=== PATIENT | male | born 1960 | race Caucasian/White ===

== ENCOUNTER → 2021-05-02 16:22 | Outpatient (BNVA) | payer OTHER, SELFPAY | PROVIDERS: Family Provider Family Medicine; Referring Provider Family Medicine; Visit Provider Family Medicine | DX: K43.2 Incisional hernia without obstruction or gangrene (principal); M25.551 Pain in right hip; J44.1 Chronic obstructive pulmonary disease with (acute) exacerbation | CPT/HCPCS: 73502 ==

== ENCOUNTER → 2021-05-29 13:03 | Outpatient (BNVA) | payer OTHER, SELFPAY | PROVIDERS: Family Provider Family Medicine; Referring Provider Family Medicine; Visit Provider Specialist | DX: M25.551 Pain in right hip (principal) | CPT/HCPCS: 73502 ==

== ENCOUNTER → 2021-09-03 11:38 | Outpatient (BNVA) | payer OTHER, SELFPAY | PROVIDERS: Family Provider Family Medicine; Visit Provider Nurse Practitioner Family | DX: J44.1 Chronic obstructive pulmonary disease with (acute) exacerbation (principal) | CPT/HCPCS: 80053; 85025 ==

== ENCOUNTER → 2021-10-24 11:19 | Outpatient (BNVA) | payer OTHER, SELFPAY | PROVIDERS: Family Provider Family Medicine; PCP Nurse Practitioner Family; Visit Provider Nurse Practitioner Family | DX: I10 Essential (primary) hypertension (principal); G25.81 Restless legs syndrome; J44.1 Chronic obstructive pulmonary disease with (acute) exacerbation; M25.551 Pain in right hip; F41.8 Other specified anxiety disorders | CPT/HCPCS: 80053; 80061; 82607; 83735; 84443; 85025 ==

== ENCOUNTER → 2022-05-30 12:16 | Outpatient (BNVA) | payer OTHER, SELFPAY | PROVIDERS: Family Provider Family Medicine; PCP Nurse Practitioner Family; Visit Provider Nurse Practitioner Family | DX: I10 Essential (primary) hypertension (principal); G25.81 Restless legs syndrome; J44.1 Chronic obstructive pulmonary disease with (acute) exacerbation; M25.551 Pain in right hip; F41.8 Other specified anxiety disorders | CPT/HCPCS: 80053; 80061; 83735; 85025 ==

== ENCOUNTER → 2022-11-28 09:33 | Outpatient (BNVA) | payer OTHER, SELFPAY | PROVIDERS: Family Provider Family Medicine; PCP Nurse Practitioner Family; Visit Provider Student in an Organized Health Care Education/Training Program | DX: M16.11 Unilateral primary osteoarthritis, right hip (principal) | CPT/HCPCS: 73502 ==

== ENCOUNTER → 2022-12-25 17:45 | Outpatient (BNVA) | payer OTHER, SELFPAY | PROVIDERS: Family Provider Family Medicine; PCP Nurse Practitioner Family; Visit Provider Family Medicine | DX: R10.11 Right upper quadrant pain (principal) | CPT/HCPCS: 80053; 85025; 87338 ==

== ENCOUNTER → 2022-12-30 11:41 | Outpatient (BNVA) | payer OTHER, SELFPAY | PROVIDERS: Family Provider Family Medicine; PCP Nurse Practitioner Family; Visit Provider Family Medicine | DX: R10.11 Right upper quadrant pain (principal) | CPT/HCPCS: 87338 ==

== ENCOUNTER 2023-01-20 06:13 | Outpatient (CLI) | payer OTHER, SELFPAY ==
--- NOTE | 2023-01-20 06:45 | US_ITS ---
WS: [id number] Complete ABDOMINAL ULTRASOUND HISTORY: R10.11 - Right upper quadrant pain COMPARISON: None available. Liver: 13.9 cm in length. Normal size liver and echogenicity. No bile duct dilatation or mass. Portal Vein: Normal hepatopetal flow with monophasic waveform. Gallbladder: Normally distended gallbladder with no stones or wall thickening. CBD: 0.3 cm Pancreas: Normal size and echogenicity. Right kidney: 10.5 cm x 5.4 x 5.5 cm. Cortex:1.2 cm. Normal size and echogenicity. No hydronephrosis or mass. Left kidney: 12.1 cm x 3.9 cm x 5.5 cm. Cortex: 1.2 cm. Normal size kidney and normal echogenicity. Cannot exclude a very slight dilatation of the LEFT renal pelvis or extrarenal pelvis. No calyceal dilatation. Spleen: Normal. Aorta and IVC: Unremarkable abdominal aorta and IVC. US/US abdomen complete* [id number] Impression: 1. Unremarkable abdominal ultrasound. 2. No cholelithiasis. 3. Poor visualization of the LEFT renal pelvis. Kidneys are otherwise negative .
== END 2023-01-20 06:14 | disposition home or self-care (01) ==
PROVIDERS: PCP Nurse Practitioner Family; Visit Provider Family Medicine
DX: R10.11 Right upper quadrant pain (principal)
CPT/HCPCS: 76700

== ENCOUNTER → 2023-01-23 11:15 | Outpatient (BNVA) | payer OTHER, SELFPAY | PROVIDERS: PCP Nurse Practitioner Family; Visit Provider Student in an Organized Health Care Education/Training Program | DX: M16.11 Unilateral primary osteoarthritis, right hip (principal) | CPT/HCPCS: 77002 ==

== ENCOUNTER → 2023-05-11 10:00 | Outpatient (BNVA) | payer MEDICARE, OTHER, SELFPAY | PROVIDERS: PCP Nurse Practitioner Family; Visit Provider Family Medicine | DX: Z71.6 Tobacco abuse counseling (principal); I10 Essential (primary) hypertension; J44.9 Chronic obstructive pulmonary disease, unspecified; Z12.5 Encounter for screening for malignant neoplasm of prostate; J44.1 Chronic obstructive pulmonary disease with (acute) exacerbation; F41.8 Other specified anxiety disorders; M25.551 Pain in right hip | CPT/HCPCS: 80053; 80061; 84443; 85025; G0103 ==

== ENCOUNTER → 2023-07-03 07:39 | Outpatient (BNVA) | payer MEDICARE, OTHER, SELFPAY | PROVIDERS: PCP Nurse Practitioner Family; Visit Provider Student in an Organized Health Care Education/Training Program | DX: M16.11 Unilateral primary osteoarthritis, right hip (principal); Z71.6 Tobacco abuse counseling | CPT/HCPCS: 20610; 77002; 99214; J3301 ==

== ENCOUNTER → 2023-10-06 09:52 | Outpatient (BNVA) | payer MEDICARE, OTHER, SELFPAY | PROVIDERS: PCP Nurse Practitioner Family; Visit Provider Student in an Organized Health Care Education/Training Program | DX: M16.11 Unilateral primary osteoarthritis, right hip (principal); Z71.6 Tobacco abuse counseling | CPT/HCPCS: 73522; 99214 ==

== ENCOUNTER 2023-11-02 08:31 | Outpatient (CLI) | payer MEDICARE, OTHER, SELFPAY ==
[2023-11-02 09:04] LABS: Basophils % 0.5 %; Eosinophils # 0.1 10^3/uL (0.0-0.8); Eosinophils % 0.7 %; Hematocrit 44.7 % (37-53); Lymphocytes # 1.1 10^3/uL (0.8-4.8); Lymphocytes % 13.8 %; Mean Corpuscular HGB Conc 32.9 g/dL (30-55); Mean Corpuscular Hemoglobin 31.1 pg (27-33); Mean Corpuscular Volume 94.5 fl (82-101); Mean Platelet Volume 9.5 fL (7.4-10.4); Monocytes % 12.2 %; Neutrophils % 72.6 %; Nucleated Red Blood Cells % 0 %; Platelet Count 285 10^3/cmm (157-399); Red Blood Count 4.73 10^6/uL (3.85-5.65); Red Cell Distribution Width 13.5 % (12.1-15.1); White Blood Count 8.13 10^3/uL (3.29-11.43)
[2023-11-02 09:16] LABS: Add Urine Microscopic? YES; Bilirubin Urine Neg (Negative); Blood Urine Neg (Negative); Glucose Urine UA Norm (Normal); Ketones Urine Negative (Negative); Leukocyte Esterase Urine Trace (Negative); Nitrate Urine Negative (Negative); Protein Urine Neg (Negative); Specific Gravity, Urine 1.005 (1.005-1.030); Sulfosalicylic Acid Urine Negative (Negative); Urine Appearance Clear (CLEAR); Urine Color Yellow (Yellow); Urobilinogen Urine Neg (Negative); pH Urine 8 (5-7)
[2023-11-02 09:17] LABS: RBC Urine RARE /hpf (0-2); WBC Urine RARE /hpf (0-5)
[2023-11-02 09:25] LABS: Alanine Aminotransferase 11 U/L (0-41); Albumin Level 4.1 g/dL (3.5-5.2); Alkaline Phosphatase 89 U/L (40-130); Anion Gap 12.5 (5-19); Aspartate Amino Transferase 15 U/L (0-40); Blood Urea Nitrogen 9 mg/dL (8-23); Calcium 9.2 mg/dL (8.5-10.5); Carbon Dioxide 28 mmol/L (22-29); Chloride 105 mmol/L (98-107); Globulin 2.6 g/dL (1.3-4.6); Glomerular Filtration Rate 113.2 mL/min (90-130); Glucose 104 mg/dL (65-115); Osmolality Calculated 291 mOsm/kg (285-295); Potassium 4.5 mmol/L (3.5-5.1); Sodium 141 mmol/L (136-145); Total Bilirubin 0.3 mg/dL (0.15-1.2); Total Protein 6.7 g/dL (6.6-8.7)
== END 2023-11-02 08:32 | disposition home or self-care (01) ==
LOC: LAB 08:33
PROVIDERS: PCP Family Medicine; Visit Provider Student in an Organized Health Care Education/Training Program
DX: Z01.812 Encounter for preprocedural laboratory examination (principal)
CPT/HCPCS: 36415; 80053; 81001; 85025

== ENCOUNTER → 2023-11-04 09:38 | Outpatient (BNVA) | payer MEDICARE, OTHER, SELFPAY | PROVIDERS: PCP Family Medicine; Visit Provider Family Medicine | DX: Z01.818 Encounter for other preprocedural examination (principal) | CPT/HCPCS: 93005 ==

== ENCOUNTER 2023-11-10 17:05 | Outpatient (CLI) | payer MEDICARE, OTHER, SELFPAY ==
--- NOTE | 2023-11-10 17:30 | CT_ITS ---
WS: [id number] CT RIGHT hip, noncontrast HISTORY: M16.11 - Unilateral primary osteoarthritis, right hip TECHNIQUE: Protocol for GAEL total hip replacement has been obtained. This includes axial imaging thr ough the RIGHT hip, RIGHT knee. DLP: 817.02 mGy COMPARISON: Hip radiograph 10/06/2023 Severe degenerative changes at the RIGHT hip joint. There is asymmetric placement of the femoral head within the acetabulum due to osteophytic ridging. Osteophytic ridging around the acetabulum and femo ral head. Subchondral cystic changes with bone upon bone. Mild degenerative changes noted at the LEFT hip joint. Degenerative facet joint arthritis at L5-S1. There is slight lateral subluxation of the patella. No destructive bone lesions. Mild plaque in the p opliteal arteries. No joint effusions. IMPRESSION: CT imaging provided for [facility] robotic total knee replacement.
== END 2023-11-10 17:06 | disposition home or self-care (01) ==
LOC: RAD 17:05
PROVIDERS: PCP Family Medicine; Visit Provider Student in an Organized Health Care Education/Training Program
DX: M16.11 Unilateral primary osteoarthritis, right hip (principal)
CPT/HCPCS: 73700

== ENCOUNTER 2023-11-16 09:47 | Observation (INO) | payer MEDICARE, OTHER, SELFPAY ==
[2023-11-16] VITALS (22 sets, daily range): BP systolic 90–142; BP diastolic 47–82; PULSE 70–90; RESP 16–22; TEMP 36.1–36.8; O2SAT 78–98; BMI 34.3
[2023-11-16] MEDS: ketorolac 30 mg/mL INJ IVP (06:40)
[2023-11-16] MEDS: acetaminophen 1,000 MG/100 ML PIGGYBACK 400 MG IV ×3 (06:41→17:54)
[2023-11-16] MEDS: sodium chloride 0.9% 1,000 ML 30 ML IV (06:41)
[2023-11-16] MEDS: lactated ringers 500 ML IV (06:42)
--- NOTE | 2023-11-16 06:49 | ANES.PREANE2 ---
Pre-Anesthetic Assessment Height/Weight: Height 1.63 m Weight 90.718 kg Temp Pulse Resp BP Pulse Ox O2 Del Method 98.3 F 81 18 142/82 95 Room Air 11/16/23 06:17 11/16/23 06:17 11/16/23 06:17 11/16/23 06:17 11/16/23 06:17 11/16/23 06:17 Preop Diagnosis: Right hip degenerative joint disease Operation Date: 11/16/23 07:00 Proposed Procedures p Harvey Robot Total Hip Arthroplasty, posterior approach(Right) - Kyle Erik, DO Familial anesthetic complications: None Was Beta Prashant taken within 24 hours: N/A Was Clonidine taken within 24 hours: N/A Last intake: Intake Last Liquid Date 11/15/23 Last Liquid Time 23:55 Last Solid Date 11/15/23 Last Solid Time 16:30 Social Tobacco and No alcohol Exam alert, oriented x 3, clear to auscultation bilaterally and regular rate & rhythm Airway Mallampati: Class III Dentition: other (poor dentition, multiple missing) Pulmonary Chronic Obstructive Pulmonary Disease and Sleep Apnea CV/HEM Hypertension GI Gastroesophageal Reflux Disease Anesthetic Plan ASA status: 3 Anesthesia: Regional (specify below) Other: spinal Risk of > 500 ml blood loss (7ml/kg in children): No Medications/Allergies Home Medications Medication Instructions Recorded Confirmed Last Taken Type nebulizer, mask, tubing and #1 ea 09/03/21 10/12/23 Unknown Rx supplies hydrochlorothiazide 25 mg tablet 25 mg PO QAM #90 tabs 02/09/23 11/16/23 11/15/23 Rx albuterol sulfate 90 mcg/actuation 2 puff inhalation Q6H PRN 05/12/23 11/16/23 11/16/23 Rx aerosol inhaler (ProAir HFA) shortness of breath or wheezing #8.5 grams right economy knee brace #1 ea 07/03/23 10/12/23 Unknown Rx cyclobenzaprine 10 mg tablet See Rx Instructions .Route 07/23/23 11/16/23 11/15/23 Rx .COMPLEX #270 tabs fluticasone 500 mcg-salmeterol 50 1 inh inhalation BID #60 ea 07/23/23 11/16/23 11/16/23 Rx mcg/dose blistr powdr for inhalation (Advair Diskus) gabapentin 600 mg tablet 600 mg PO BID #180 tabs 07/23/23 11/16/23 11/15/23 Rx albuterol sulfate 2.5 mg/3 mL 2.5 mg (3 mL) inhalation QID PRN 08/10/23 11/13/23 11/11/23 Rx (0.083 %) solution for nebulization shortness of breath or wheezing #90 mL hydrocodone 5 mg-acetaminophen 325 1 tab PO Q8H PRN pain 14 days #42 10/12/23 11/16/23 11/16/23 Rx mg tablet tabs acetaminophen 650 mg 650 mg PO Q12H PRN Pain 11/04/23 11/13/23 11/12/23 History tablet,extended release acetylcysteine 600 mg capsule (NAC) 600 mg PO DAILY 11/04/23 11/13/23 11/12/23 History ascorbate calcium (vitamin C) 500 500 mg PO DAILY 11/04/23 11/16/23 11/15/23 History mg tablet cholecalciferol (vit D3) 1,000 1 tab PO DAILY 11/04/23 11/16/23 11/15/23 History unit-vitamin K2 (MK4) 100 mcg tablet (K2 Plus D3) coQ10 (ubiquinol) 100 mg capsule 100 mg PO DAILY 11/04/23 11/16/23 11/15/23 History (Qunol Eleuterio CoQ10) docusate sodium 100 mg capsule 100 mg PO BID 11/04/23 11/16/23 11/15/23 History (Colace) melatonin 3 mg capsule 3 mg PO DAILY 11/04/23 11/16/23 11/14/23 History amlodipine 10 mg tablet 10 mg PO DAILY #90 tabs 11/05/23 11/16/23 11/15/23 Rx omeprazole 40 mg capsule,delayed 40 mg PO BID #180 caps 11/05/23 11/16/23 11/15/23 Rx release citalopram 20 mg tablet 20 mg PO DAILY 11/13/23 11/16/23 11/15/23 History lisinopril 20 mg tablet 20 mg PO BID 11/13/23 11/16/23 11/15/23 History Allergies Allergy/AdvReac Type Severity Reaction Status Date / Time No Known Allergies Allergy Verified 11/13/23 08:22 Current Medications Generic Name Dose Route Start Last Admin Trade Name Slickq PRN Reason Stop Dose Admin Lactated Ringer's 500 mls @ 500 mls/hr 11/16/23 05:53 11/16/23 06:42 Lactated Ringers IV 11/16/23 06:52 500 mls/hr .Q1H ONE Administration Sodium Chloride 1,000 mls @ 30 mls/hr 11/16/23 06:00 11/16/23 06:41 Sodium Chloride 0.9% IV 11/17/23 05:59 30 mls/hr .Q24H JAY Administration PFSH Anesthesia Medical History COPD (chronic obstructive pulmonary disease) Restless leg Depression with anxiety Surgical History Hx of appendectomy (~1988) Social History Smoking and tobacco/nicotine status: current every day tobacco/nicotine user (2 PPD) cigarettes Packs smoked per day: 1 Years cigarettes smoked: 52 Quit status (tobacco/nicotine): not considering quitting Alcohol intake: unknown Substance/Drug Use: never Data Anesthesia Cardiac Studies: No Data to Display
[2023-11-16] MEDS: midazolam 1 mg/mL INJ 2 mL 2 MG IVP (06:51)
[2023-11-16 06:55] LABS: Basophils % 0.5 %; Eosinophils # 0.1 10^3/uL (0.0-0.8); Eosinophils % 1.4 %; Hematocrit 44.8 % (37-53); Lymphocytes # 1.4 10^3/uL (0.8-4.8); Lymphocytes % 18.2 %; Mean Corpuscular HGB Conc 32.8 g/dL (30-55); Mean Corpuscular Hemoglobin 30.9 pg (27-33); Mean Corpuscular Volume 94.3 fl (82-101); Mean Platelet Volume 9.9 fL (7.4-10.4); Monocytes # 1.1 10^3/uL (0.2-0.9); Monocytes % 13.9 %; Neutrophils # 5.17 10^3/uL (1.8-7.7); Neutrophils % 65.7 %; Nucleated Red Blood Cells % 0 %; Platelet Count 303 10^3/cmm (157-399); Red Blood Count 4.75 10^6/uL (3.85-5.65); Red Cell Distribution Width 13.8 % (12.1-15.1); White Blood Count 7.86 10^3/uL (3.29-11.43)
--- NOTE | 2023-11-16 06:55 | W.PM.OPSFHP ---
Same Day Surgery H&P Indication for Procedure/HPI DATE OF PROCEDURE: November 16, 2023 CHIEF COMPLAINT/INDICATIONFOR SURGICAL PROCEDURE: Right hip degenerative joint disease PREOP DIAGNOSIS: Right hip degenerative joint disease PLANNED PROCEDURE: Operation Date: 11/16/23 07:00 Proposed Procedures p Harvey Robot Total Hip Arthroplasty, posterior approach(Right) - Kyle Valencia DO Medications/Allergies* Home Medications Medication Instructions Recorded Confirmed Type acetaminophen 650 mg 650 mg PO Q12H PRN Pain 11/04/23 11/13/23 History tablet,extended release acetylcysteine 600 mg capsule (NAC) 600 mg PO DAILY 11/04/23 11/13/23 History ascorbate calcium (vitamin C) 500 500 mg PO DAILY 11/04/23 11/16/23 History mg tablet cholecalciferol (vit D3) 1,000 1 tab PO DAILY 11/04/23 11/16/23 History unit-vitamin K2 (MK4) 100 mcg tablet (K2 Plus D3) coQ10 (ubiquinol) 100 mg capsule 100 mg PO DAILY 11/04/23 11/16/23 History (Qunol Eleuterio CoQ10) docusate sodium 100 mg capsule 100 mg PO BID 11/04/23 11/16/23 History (Colace) melatonin 3 mg capsule 3 mg PO DAILY 11/04/23 11/16/23 History citalopram 20 mg tablet 20 mg PO DAILY 11/13/23 11/16/23 History lisinopril 20 mg tablet 20 mg PO BID 11/13/23 11/16/23 History Allergies/Adverse Reactions Allergy/AdvReac Type Severity Reaction Status Date / Time No Known Allergies Allergy Verified 11/13/23 08:22 Current Medications: Generic Name Dose Route Start Last Admin Trade Name Freq PRN Reason Stop Dose Admin Sodium Chloride 1,000 mls @ 30 mls/hr 11/16/23 06:00 11/16/23 06:41 Sodium Chloride 0.9% IV 11/17/23 05:59 30 mls/hr .Q24H JAY Administration Midazolam HCl 2 mg 11/16/23 05:53 11/16/23 06:51 Midazolam 1 Mg/Ml Inj 2 Ml IVP 1 mg Q5M PRN Administration Preop Anxiety Pertinent History/Comorbid Conditions* Medical History (Updated 10/12/23 @ 14:44 by Yuki Paris MD) COPD (chronic obstructive pulmonary disease) Restless leg Depression with anxiety Surgical History (Updated 01/18/21 @ 09:55 by Yuki Paris MD) Hx of appendectomy (~1988) Social History Smoking and tobacco/nicotine status: current every day tobacco/nicotine user (2 PPD) cigarettes Packs smoked per day: 1 Years cigarettes smoked: 52 Quit status (tobacco/nicotine): not considering quitting Alcohol intake: unknown Substance/Drug Use: never Pertinent Exam Findings alert, oriented x 3, operative site marked and procedure specific exam findings Patient has right hip tenderness to palpation of the groin as well as pain with range of motion of the hip. Refer to office note on 10/06/2023 for detailed orthopedic examination: Examination of the right hip: -severely diminished rom of hip flex and internal rotation with significant groin pain -Mild tenderness over lateral greater troch -Pedal pulse 2+ -Patient ambulates with limp and using cane. Recommendations Surgery/Procedure today Other Plans: Plan to proceed to the OR today with right total hip arthroplasty Harvey robotic assisted posterior approach. Patient's been over 90 days since his last injection. This point in time he understands the ins and outs procedure the risk benefits complication alternatives with surgery. Understanding risk of surgery he elects to proceed all questions have been answered at this time we will proceed with right total hip arthroplasty?Harvey robotic assisted today. Coding Level of Care Code Acute Code for Pérez Bonilla
[2023-11-16] MEDS: ceFAZolin 2,000 MG in sodium chloride 0.9% (plus) 50 ML 100 MG IV ×3 (07:05→21:47)
[2023-11-16 07:14] LABS: Blood Urea Nitrogen 14 mg/dL (8-23); Calcium 9.4 mg/dL (8.5-10.5); Carbon Dioxide 29 mmol/L (22-29); Chloride 103 mmol/L (98-107); Glucose 111 mg/dL (65-115); Osmolality Calculated 289 mOsm/kg (285-295); Sodium 139 mmol/L (136-145)
[2023-11-16] MEDS: tranexamic acid 1,000 mg/10mL SDV 1000 MG IV (07:45)
[2023-11-16] MEDS: vancomycin 1,000 MG SDV 1000 MG INTRA-ARTI (08:49)
--- NOTE | 2023-11-16 09:22 | W.PM.BPON ---
Date of Procedure: 11/16/2023 Surgeon: Kyle Valencia DO [employer] Supervisor(s): None Procedure(s) performed: Right total hip arthroplasty?Harvey robotic assisted (posterior approach) Findings of the procedure(s): Patient found to have severe right hip degenerative joint disease underwent procedure as planned with this without issues or complications Estimated blood loss: 150 mL Specimen(s) removed: Femoral head and acetabular reamings removed Post-operative diagnosis: Right hip degenerative joint disease
--- NOTE | 2023-11-16 09:23 | PM.OP ---
Operative Report Date of procedure: November 16, 2023 Surgeon: Kyle Valencia DO Procedure: Preop Diagnosis?Right hip degenerative joint disease Post-op diagnosis: Right hip degenerative joint disease Procedure done: Right total hip arthroplasty?robotic assisted Harvey?posterior?approach Implants: [place] total hip arthroplasty implants 54 mm cluster hole acetabular shell 6.5 mm x (20 mm and 30 mm) acetabular screw Alpha code E MDM cementless metal liner Femoral stem size #4 127 degree neck angle Alpha code E MDM -2.7 mm head Surgeon: Kyle Valencia DO Estimated blood loss: 150 mL IV fluids: 1400 mL Urine output: 200 mL Complications: None Condition: stable Disposition: floor Brief History: Patient's been seen and worked up by myself in the outpatient setting and findings consistent with Right hip degenerative joint disease. He has failed conservative treatment this is causing him severe pain and inability to perform his job from a daily aspect. We talked about his treatment options as far as nonoperative and operative intervention. he ultimately through shared decision-making would like to proceed with a Right total hip arthroplasty. we detailed out his risk benefits complications alternatives to surgical and nonsurgical treatment options. Understanding his risk for surgery he elects to proceed with Right total hip arthroplasty robotic assisted Harvey utilizing a?posterior?approach. All questions answered. He elects proceed with surgery today. Procedure: Patient was seen evaluate in preoperative holding area.? Consent was reviewed and signed with patient.? Correct extremity was then marked.? Patient seen evaluate by anesthesia department once cleared for surgery pt was taken back to the operative suite.? Patient underwent spinal anesthesia per the anesthesia department.? This point time pt was then placed on the operative suite and table.? Pt was then placed in lateral decubitus patient worked with the Right hip up.? Patient was secured in the lateral decubitus position with pegboard. All bony prominences well-padded he was properly secured to the bed.? At this point time the Right lower extremity was then prepped and draped in standard orthopedic fashion with care not to drape out the iliac wing for pelvic array placement.? Final timeout performed.? Patient received appropriate preoperative antibiotics. Started off with establishment of my pelvic array pins.? A small longitudinal incision was made directly over the iliac wing.? Sharp scalpel excision through skin and subcutaneous tissue directly onto bone.? Next I then loaded my pelvic pin.? This was then drilled through the iliac wing corridor with excellent fixation.? Next I then loaded the guide which was placed directly onto bone and then subsequently placed 2 more pins to secure fixation.? Next the pelvic array was then sent had excellent visualization with the Harvey robot and was secured. EKG pad was placed on the distal lateral aspect of the femur and sterile aseptic technique and use as my distal reference point. Next I proceeded with my standard?posterior?approach.? Sharp scalpel through skin and subcutaneous tissue this was centered over the greater trochanter.? I then utilized a Fisher elevator over the gluteus amalia fascia.? Next the fascia was then split longitudinally with bipolar electrocautery.? Next a Charnley retractor was then placed.? All bone was then placed into the abductors.? A standard full-thickness release of the piriformis and the short external rotators along with the capsule to grade 1 full thick sleeve for later repair was then placed straight down to the lesser trochanter.? Lesser trochanter was then subsequently identified.? Prior to dislocating the hip we then placed our greater trochanter femur checkpoint.? We marked our appropriate checkpoint for referencing on pelvic array.? At this point in time we then established both of our checkpoints as well as referencing for leg lengths I utilized the EKG pad as my distal reference point. The legs were marked and traced to have appropriate position on the drapes to allow for accurate reading.? Preoperative leg lengths set. Once this was then established I then proceeded with dislocation of the femoral head.? At this point Hohmann's were then placed superiorly and inferiorly along the femoral neck..? The sciatic nerve was protected throughout this case.? At this point time I then utilized the Harvey robot and referencing point to reference different aspects along the femoral head and neck for my appropriate neck length.? These were referenced on the inferior mid substance as well as up into the superior shoulder of the femoral neck.? This marked my oscillating saw was used to make my femoral neck cut.? Femoral head was then removed. Next the leg was placed in appropriate position and my anterior and?posterior?acetabular retractors then placed.? Next I excised the labrum and then remove the pulvinar.? I did do a small release of the inferior capsule which was severely taut to allow for easier placement of my reamers as well as reduction.? Acetabulum was thoroughly irrigated. At this point in time keeping my retractors in place I subsequently loaded up the [employer] robot for my acetabular reaming.?? Next I then set my 54 reamer under the [employer] robot and subsequently held this with appropriate preplanned preop planned version of 40 degrees of abduction angle as well as 20 degrees of anteversion.? This preoperative plan was then subsequently made to accommodate for ranges of motion of impingement that was assessed preoperatively utilizing the [employer] robotic software technology. The small adjustments of abduction and anteversion accommodated no anterior hip impingement with the hip flexed at 90 degrees. I then subsequently reamed this to the appropriate depth with 54mm reamer.? We opened up the acetabular shell clusterhole of the 54 mm Dereck this was then loaded onto my impacting system and then I subsequently impacted this to appropriate depth.? This was then removed from the robot and I used the Harvey probe at the center to confirm on the CT scan that this was down on bone which it was.? Next I then drilled and placed 2 acetabular screws with excellent fixation these were drilled and measured to be 20mm and 30 mm this was in the?posterior?superior aspect of the acetabulum had excellent bite and fixation.? The cup was solid and had excellent press-fit fixation. next, opened the alpha code E MDM cementless liner then subsequently placed in appropriate position and impacted into place.? I then placed a sponge into the acetabulum to protect the polyethylene while my femur preparation was performed.? At this point time I then utilized a small rongeur to clear off the shoulder of the femoral neck to clear out the soft tissue envelope for my box osteotome.? Next box osteotome was used a canal finder was placed as well as a lateral lysing rattail rasp.? Once I was appropriately lateralized I then sequentially broached up to a size 4 femoral stem.? This was impacted to appropriate depth and flushed with my femoral neck cut.? This point I loaded a -2.7 size neck and subsequently reduced the hip.? At this point in time the hip was taken through range of motion before evaluating with the robot on leg lengths.? The hip was taken through range of motion and had excellent stability with hip flexion and internal rotation with no evidence of instability had an appropriate huck.? This point time utilized the Harvey probe from our femur checkpoint down to her distal checkpoint. Satisfied with this trial implants, at this point I dislocated the hip and then called for my final implants with excellent stability in all planes.? Opened up a size 4 femoral Accolade II stem.? My trials were then removed and then subsequently impacted my Accolade II stem to the same level.? This point in time trialed -2.7 mm neck length which helped match with Harvey robotic assistance had appropriate leg lengths comparative to the contralateral hip and this was confirmed clinically as well as had excellent stability I felt as though this was best combination with leg lengths being equal as well as with stability and elected for the final -2.7 mm MDM femoral head. Final MDM femoral head component was then opened and the trunnion was dried and this was impacted with excellent fixation and the hip was subsequently reduced.? We measured our final leg lengths which were appropriate patient had excellent stability in all ranges of motion.? This point time a robotic pins and checkpoints were removed.? I remove the femur checkpoint as well as my pelvic array and iliac wing pins.? Appropriate counts were then made.? This point time thoroughly irrigated the wound bed with pulse lavage.? Vancomycin powder was then sprinkled into the wound bed.? I then performed a standard capsular and external rotator repair utilizing #5 Ethibond and this was tied and repaired through bone tunnels hip, sciatic nerve was protected throughout this portion of the case. Was then kept in abduction external rotation and subsequently closed the fascial layer with Ethibond suture as well as running strata fix suture.? I then closed the deep subcutaneous layer as well as superficial subcutaneous layer with running strata fix suture as well as 3-0strata fix for skin.? Prineo glue dressing was then placed over the skin.? I then irrigated the pelvic array pin site.? There is were then closed with interrupted 0, 2-0 Vicryl suture and Monocryl as well as Prineo glue for the skin.? Incisions were then covered with deep and Silverlon dressing.? Patient was awakened from anesthesia and taken to PACU in stable condition Disposition: Patient taken to PACU in stable condition.? Patient will receive appropriate discharge instructions as well as DVT prophylaxis and pain medication.? Patient will be admitted to the floor for observation should be evaluated by the internal medicine team for medical management.? Patient received appropriate DVT prophylaxis as well as pain medication PT/OT weightbearing as tolerated Right lower extremity with?posterior?hip precautions, Postoperative Abx and TXA.? We will follow-up with patient in the office in 2 weeks.? Patient understands agrees with current plan.? All questions answered.
--- NOTE | 2023-11-16 09:30 | XR_ITS ---
WS: [id number] Exam: XR hip RT 2-3V wo/w pel* [id number] Date/Time of Exam: 11/16/2023 9:47 AM Reason For Exam: post op KENNETH Comparison 10/06/2023. A RIGHT total hip prosthesis has been placed and is in satisfactory position. Postoperative changes i n the adjacent soft tissues. Surgical clips in the RIGHT pelvis. Mild DJD of the LEFT hip. IMPRESSION: 1. RIGHT total hip replacement in satisfactory position.
[2023-11-16] MEDS: HYDROmorphone 1 mg/mL INJ 1 mL 0.5 MG IVP ×2 (09:53→22:01)
--- NOTE | 2023-11-16 09:55 | P.CONIM_ITS ---
Providers/Reason For Consult 2 Consulting Physician/Specialty*: Wilder Crowell MD, hospitalist Reason for Consult*: Medical management Requesting Physician: Dr. Valencia Attending Physician: Kyle Valencia DO Primary Care Provider: Yuki Paris MD History of Present Illness History of Present Illness Nando Mas is a 63 year old male who presented today for an elective total hip arthroplasty on the right secondary to DJD. I have been asked to follow him in consultation, for medical management of his COPD, hypertension, obstructive sleep apnea and other medical conditions. There were no direct complications from surgery. 150 cc of blood loss was noted. I am seeing him in recovery, and he is still under the effects of anesthesia so cannot elaborate on what his medical conditions currently. Review of Systems 2 General: Reports: ROS unobtainable due to medical condition Medications/Allergies Home Medications Medication Instructions Recorded Confirmed Last Taken Type nebulizer, mask, tubing and #1 ea 09/03/21 10/12/23 Unknown Rx supplies hydrochlorothiazide 25 mg tablet 25 mg PO QAM #90 tabs 02/09/23 11/16/23 11/15/23 Rx albuterol sulfate 90 mcg/actuation 2 puff inhalation Q6H PRN 05/12/23 11/16/23 11/16/23 Rx aerosol inhaler (ProAir HFA) shortness of breath or wheezing #8.5 grams right economy knee brace #1 ea 07/03/23 10/12/23 Unknown Rx cyclobenzaprine 10 mg tablet See Rx Instructions .Route 07/23/23 11/16/23 11/15/23 Rx .COMPLEX #270 tabs fluticasone 500 mcg-salmeterol 50 1 inh inhalation BID #60 ea 07/23/23 11/16/23 11/16/23 Rx mcg/dose blistr powdr for inhalation (Advair Diskus) gabapentin 600 mg tablet 600 mg PO BID #180 tabs 07/23/23 11/16/23 11/15/23 Rx albuterol sulfate 2.5 mg/3 mL 2.5 mg (3 mL) inhalation QID PRN 08/10/23 11/13/23 11/11/23 Rx (0.083 %) solution for nebulization shortness of breath or wheezing #90 mL hydrocodone 5 mg-acetaminophen 325 1 tab PO Q8H PRN pain 14 days #42 10/12/23 11/16/23 11/16/23 Rx mg tablet tabs acetaminophen 650 mg 650 mg PO Q12H PRN Pain 11/04/23 11/13/23 11/12/23 History tablet,extended release acetylcysteine 600 mg capsule (NAC) 600 mg PO DAILY 11/04/23 11/13/23 11/12/23 History ascorbate calcium (vitamin C) 500 500 mg PO DAILY 11/04/23 11/16/23 11/15/23 History mg tablet cholecalciferol (vit D3) 1,000 1 tab PO DAILY 11/04/23 11/16/23 11/15/23 History unit-vitamin K2 (MK4) 100 mcg tablet (K2 Plus D3) coQ10 (ubiquinol) 100 mg capsule 100 mg PO DAILY 11/04/23 11/16/23 11/15/23 History (Qunol Eleuterio CoQ10) docusate sodium 100 mg capsule 100 mg PO BID 11/04/23 11/16/23 11/15/23 History (Colace) melatonin 3 mg capsule 3 mg PO DAILY 11/04/23 11/16/23 11/14/23 History amlodipine 10 mg tablet 10 mg PO DAILY #90 tabs 11/05/23 11/16/23 11/15/23 Rx omeprazole 40 mg capsule,delayed 40 mg PO BID #180 caps 11/05/23 11/16/23 11/15/23 Rx release citalopram 20 mg tablet 20 mg PO DAILY 11/13/23 11/16/23 11/15/23 History lisinopril 20 mg tablet 20 mg PO BID 11/13/23 11/16/23 11/15/23 History Allergies Allergy/AdvReac Type Severity Reaction Status Date / Time No Known Allergies Allergy Verified 11/13/23 08:22 Current Medications Generic Name Dose Route Start Last Admin Trade Name Freq PRN Reason Stop Dose Admin Sodium Chloride 1,000 mls @ 30 mls/hr 11/16/23 06:00 11/16/23 06:41 Sodium Chloride 0.9% IV 11/17/23 05:59 30 mls/hr .Q24H JAY Administration Midazolam HCl 2 mg 11/16/23 05:53 11/16/23 06:51 Midazolam 1 Mg/Ml Inj 2 Ml IVP 1 mg Q5M PRN Administration Preop Anxiety PFSH Acute 2 PFSH: Medical History (Updated 11/16/23 @ 10:00 by Wilder Crowell MD) GERD (gastroesophageal reflux disease) Obstructive sleep apnea Hypertension COPD (chronic obstructive pulmonary disease) Restless leg Depression with anxiety Surgical History Hx of appendectomy (~1988) Social History Smoking and tobacco/nicotine status: current every day tobacco/nicotine user (2 PPD) cigarettes Packs smoked per day: 1 Years cigarettes smoked: 52 Quit status (tobacco/nicotine): not considering quitting Alcohol intake: unknown Substance/Drug Use: never Vitals/I&O/Wt Last Vital Signs Temp 98.3 F 11/16/23 06:17 Pulse 81 11/16/23 06:17 Resp 18 11/16/23 06:17 BP 142/82 11/16/23 06:17 Pulse Ox 95 11/16/23 06:17 O2 Del Method Room Air 11/16/23 06:17 O2 Flow Rate 6 11/16/23 09:45 11/15/23 11/16/23 11/16/23 22:59 06:59 14:59 Intake Total 100 / 100 450 / 450 Output Total 350 / 350 Balance 100 / 100 100 / 100 Weight last 48 hrs Weight 90.718 kg Physical Exam 2 Narrative: General exam is a white male, currently recovering from anesthesia. He cannot currently give meaningful responses. He does move, and groans when stimulated. HEENT atraumatic and normocephalic. Neck is supple no lymphadenopathy thyromegaly Cardiovascular regular rate and rhythm, no murmur Lungs clear no wheezing or crackles Abdomen is soft, positive bowel sounds. Masses felt midline, above umbilicus, which has a consistency of a lipoma. No obvious organomegaly exam demonstrates Thomas Extremities no cyanosis, edema, cap refill brisk. Dressing right hip Skin no rash Neuro moves all 4 extremities, no suspected focal deficits. Urinary Catheter Management: Thomas: Cath Placed During This Visit: yes Urinary Catheter Date of Insertion: 11/16/23 Urinary Catheter Time of Insertion: 07:30 Data 11/16/23 06:26 11/16/23 06:26 Other Labs: Recent urinalysis was negative Recent EKG on November 03 which I reviewed demonstrated a normal axis, rate around 80, no acute changes. A&P Assessment and plan (1) Degenerative joint disease of right hip: Patient is directly postoperative total hip arthroplasty on the right. Estimated blood loss 150 cc. No complications with surgery Continue to monitor in recovery When appropriate moved to floor CBC, CMP in the morning to monitor for acute blood loss anemia, and electrolytes following surgery with fluid shifts Therapy consults as per Ortho Qualifiers: Osteoarthritis type: primary Qualified Code(s): M16.11 - Unilateral primary osteoarthritis, right hip (2) Hypertension: Continue home medications, with the exception of hydrochlorothiazide and lisinopril. Will evaluate the patient tomorrow prior to administrating these medications to determine blood pressure can tolerate. Qualifiers: Hypertension type: primary hypertension Qualified Code(s): I10 - Essential (primary) hypertension (3) COPD (chronic obstructive pulmonary disease): Patient with history of COPD. Placed on budesonide, scheduled DuoNeb here. Qualifiers: COPD type: COPD with acute exacerbation Qualified Code(s): J44.1 - Chronic obstructive pulmonary disease with (acute) exacerbation (4) Tobacco dependency: He has a history of tobacco dependency. When he is more alert, nicotine patch can be discussed Encourage abstinence Plan Other medical conditions as listed in history of present illness Thank you for this consultation DVT prophylaxis as per primary Consult Attestations 2 Medical Necessity Statement: As per primary Diagnoses Primary osteoarthritis of right hip M16.11 Osteoarthritis type: primary Primary hypertension I10 Hypertension type: primary hypertension Chronic obstructive pulmonary disease with acute exacerbation J44.1 COPD type: COPD with acute exacerbation Tobacco dependency F17.200 Time Spent (min) 39
--- NOTE | 2023-11-16 10:20 | ANE.PACU2 ---
Inpatient post-anesthesia follow up: Airway intact: Yes Vital signs: Temperature 97.2 F Pulse Rate 84 Respiratory Rate 16 Blood Pressure 112/66 Pulse Oximetry 97 Oxygen Delivery Me thod Nasal Cannula Oxygen Flow Rate 3 Fraction of Inspir ed Oxygen Hydration adequate: Yes Nausea and vomiting: No Pain level: 1 Mental status: Baseline
--- NOTE | 2023-11-16 10:50 | PC.NURSE ---
Patient arrived to med/surg 263 via bed with [employer] Radha.
[2023-11-16] MEDS: chlorhexidine gluconate 0.12% Btl 473 mL 30 ML MUCOUS MEM ×2 (12:05→17:16)
[2023-11-16] MEDS: lactated ringers 1,000 ML 100 ML IV ×2 (12:06→21:47)
[2023-11-16] MEDS: ipratropium-albuterol 3 mL Neb INHALATION ×2 (13:49→20:40)
[2023-11-16] MEDS: tranexamic acid 1,000 MG/100 ML PREMIX 600 MG IV (14:16)
[2023-11-16] MEDS: ketorolac 30 mg/mL INJ 15 MG IVP (16:55)
[2023-11-16] MEDS: pantoprazole DR 40 mg Tablet PO (17:15)
[2023-11-16] MEDS: calcium carb-vit d 600mg/400unit 1 Tablet 1 EACH PO (17:16)
[2023-11-16] MEDS: mupirocin oint 22 gm 1 APPLIC NASAL (17:16)
[2023-11-16] MEDS: gabapentin 300 mg Capsule 600 MG PO (17:16)
[2023-11-16] MEDS: iron polysaccharide complex 150 mg Capsule PO (17:16)
[2023-11-16] MEDS: sennosides-docusate Tablet 2 TAB PO (17:16)
[2023-11-16] MEDS: Fleet Enema 133 mL Enema PR (19:51)
[2023-11-16] MEDS: oxyCODONE 5 mg IR Tab/Cap PO (19:53)
--- NOTE | 2023-11-16 20:14 | PC.NURSE ---
Upon entering room at beginning of shift, patient states I need an enema, give me a damn enema. Patient educated that I would have to call the physician and get an order. Patient states oh, damn no tellings how long that will take. Dr. Tate notified that patient is requesting a saline enema. Patient states he gets enemas over the counter all the time and uses them at home. Patient states he hasn't had a BM in 3 days. Ordered received from Dr. Tate for saline enema. Patient refused to lay left lateral for enema. Patient stated that he is afraid he is going to dislocate his hip. Patient educated that we would help him get positioned properly and use the ABD pillow. Patient states no I just can't do it. Patient stated that he wanted to administer the enema himself. Patient administered half of enema himself and then handed it to this nurse to administer the rest. Educated patient that he needs to hold the enema in, in order for it to work properly. Patient sat on bedside commode and did not hold the enema in. Patient had two small rolando after enema.
[2023-11-16] MEDS: budesonide 0.5 mg/2 mL Neb INHALATION (20:40)
[2023-11-16] MEDS: LORazepam 0.5 mg Tablet PO (21:44)
[2023-11-17] VITALS (12 sets, daily range): BP systolic 129–160; BP diastolic 65–74; PULSE 80–92; RESP 16–20; TEMP 36.5–36.8; O2SAT 90–94
[2023-11-17] MEDS: oxyCODONE 5 mg IR Tab/Cap PO ×3 (00:33→09:58)
[2023-11-17] MEDS: ipratropium-albuterol 3 mL Neb INHALATION ×2 (02:21→09:06)
[2023-11-17] MEDS: HYDROmorphone 1 mg/mL INJ 1 mL 0.5 MG IVP (03:00)
[2023-11-17 05:24] LABS: Basophils % 0.1 %; Hematocrit 35.8 % (37-53); Lymphocytes # 1.3 10^3/uL (0.8-4.8); Lymphocytes % 9.5 %; Mean Corpuscular HGB Conc 33.2 g/dL (30-55); Mean Corpuscular Hemoglobin 31.5 pg (27-33); Mean Corpuscular Volume 94.7 fl (82-101); Mean Platelet Volume 9.7 fL (7.4-10.4); Monocytes # 1.8 10^3/uL (0.2-0.9); Monocytes % 13.2 %; Neutrophils # 10.56 10^3/uL (1.8-7.7); Neutrophils % 76.8 %; Nucleated Red Blood Cells % 0 %; Platelet Count 264 10^3/cmm (157-399); Red Blood Count 3.78 10^6/uL (3.85-5.65); White Blood Count 13.75 10^3/uL (3.29-11.43)
[2023-11-17 05:50] LABS: Anion Gap 11.9 (5-19); Blood Urea Nitrogen 15 mg/dL (8-23); Carbon Dioxide 27 mmol/L (22-29); Chloride 104 mmol/L (98-107); Creatinine Clr Calc Pharmacy 92.0818; Glomerular Filtration Rate 113.2 mL/min (90-130); Glucose 113 mg/dL (65-115); Osmolality Calculated 288 mOsm/kg (285-295); Potassium 4.9 mmol/L (3.5-5.1); Sodium 138 mmol/L (136-145)
[2023-11-17] MEDS: ceFAZolin 2,000 MG in sodium chloride 0.9% (plus) 50 ML 100 MG IV (06:23)
--- NOTE | 2023-11-17 06:33 | PC.NURSE ---
Patient only voided 250 ml in urinal since odell removal at 8 pm, however patient spilled urinal once on floor and unable to measure this urine. Bladder scan showed 223 ml.
--- NOTE | 2023-11-17 08:17 | PC.PHAR ---
MEDICATIONS CONFIRMED BY RN-VERIFIED DRUG, STRENGTH, AND DOSAGE 11/17/23.
--- NOTE | 2023-11-17 08:25 | P.PN_ITS ---
Subjective 2 Subjective: Nando reports he is doing okay. He did not sleep well last night. He is hopeful he can go home today. He reports his lower extremities are little swollen. Medications: Reviewed: Yes Vitals/I&O/Wt Last Vital Signs Temp 98.3 F 11/17/23 04:53 Pulse 87 11/17/23 06:00 Resp 20 H 11/17/23 04:53 BP 129/70 11/17/23 04:53 Pulse Ox 91 11/17/23 04:53 O2 Del Method Room Air 11/17/23 04:53 O2 Flow Rate 3 11/16/23 13:52 11/16/23 11/17/23 11/17/23 22:59 06:59 14:59 Intake Total 2078.333 / 3848.833 50 / 3898.833 1000 / 1000 Output Total 600 / 950 250 / 1200 Balance 1478.333 / 2898.833 -200 / 2698.833 1000 / 1000 Weight last 48 hrs Weight 87.997 kg Weight 90.718 kg Weight 90.718 kg Physical Exam 2 Narrative: General exam is a white male, no distress Neck is supple no lymphadenopathy thyromegaly Cardiovascular regular rate and rhythm, no murmur Lungs clear no wheezing or crackles Abdomen is soft, positive bowel sounds. Extremities no cyanosis, edema, cap refill brisk. Dressing right hip clean and intact Urinary Catheter Management: Thomas: Cath Placed During This Visit: yes, but has since been removed by the nurse Reason for Continuing Indwelling Catheter: Decision to DC Catheter Urinary Catheter Date of Insertion: 11/16/23 Urinary Catheter Time of Insertion: 07:30 Date Urinary Catheter Removed: 11/16/23 Time Urinary Catheter Discontinued: 20:00 Data 11/17/23 05:00 11/17/23 05:00 A&P Assessment and plan (1) Degenerative joint disease of right hip: Postoperative day #1 status post right total hip arthroplasty. Estimated blood loss 150 cc. No complications with surgery Appears to be doing well. Potential discharge today. Therapy consults as per Ortho Qualifiers: Osteoarthritis type: primary Qualified Code(s): M16.11 - Unilateral primary osteoarthritis, right hip (2) Hypertension: Doing okay. Restart hydrochlorothiazide today along with Norvasc. He can start his SAULO inhibitor tomorrow. Qualifiers: Hypertension type: primary hypertension Qualified Code(s): I10 - Essential (primary) hypertension (3) COPD (chronic obstructive pulmonary disease): Patient with history of COPD. Placed on budesonide, scheduled DuoNeb here. Qualifiers: COPD type: COPD with acute exacerbation Qualified Code(s): J44.1 - Chronic obstructive pulmonary disease with (acute) exacerbation (4) Tobacco dependency: He has a history of tobacco dependency. When he is more alert, nicotine patch can be discussed Encourage abstinence Plan Other medical conditions as listed in history of present illness Thank you for this consultation DVT prophylaxis as per primary Discontinue IV fluid. He is taking p.o. well Attestations 2 Medical Necessity Statement*: As per primary Diagnoses Primary osteoarthritis of right hip M16.11 Osteoarthritis type: primary Primary hypertension I10 Hypertension type: primary hypertension Chronic obstructive pulmonary disease with acute exacerbation J44.1 COPD type: COPD with acute exacerbation Tobacco dependency F17.200 Time Spent (min) 21
[2023-11-17] MEDS: budesonide 0.5 mg/2 mL Neb INHALATION (09:06)
--- NOTE | 2023-11-17 09:36 | PC.CHAP ---
Pastoral Care Encounter/Spiritual Assessment Type of Contact [] Declined signal operator linguist visit [] Patient/Family/Request visit [] Outpatient visit [] Follow-up visit [] Physician referral [] Code/Alert [x] Routine visit [] Staff referral [] Actively dying [] Patient sleeping [] Family support [] [] Out of room [] Palliative care [] [] Receiving care in room [] Pre-surgical visit [] Trauma [] Long length of stay [] ICU visit [] Other: Relational/Emotional Strength [x] Patient feels connected with others/family/visitors/staff [] Distress [] Loneliness/isolation [] Abandonment Spirituality of Patient [x] Person of Pina [] Attends Mandaen of their Pina [x] Believes in Prayer [] Reads Bible or Judaism materials [] There are Spiritual issues to be addressed Plant Specialist Interventions [x] Prayer [] Active listening [] Non-anxious presence [x] Spiritual/emotional support [] Crisis/trauma care [] Spiritual counseling [] Bereavement support [] Provided bereavement packet [] Provided Bible/devotional materials [] Provided toy/stuffed animal, coloring book to patient or family member [] Provided Communion [] Anointing/Puryear [] Salvation [x] Completed spiritual assessment [] Other: Impact on Illness or Injury [] Angry [] Fearful [] Anxious [] Often cries [] Exhaustion [] Unable to work [] Unable to attend gnosticism [] Unable to walk/stand [] Unable to read [] Unable to drive [] Unable to eat/drink [] Unable to sleep [] Unable to be with family [] Patient intubated [] Other: Summary Time spent with patient 5 min
[2023-11-17] MEDS: sennosides-docusate Tablet 2 TAB PO (09:58)
[2023-11-17] MEDS: gabapentin 300 mg Capsule 600 MG PO (09:58)
[2023-11-17] MEDS: apixaban 5 mg Tablet 2.5 MG PO (09:58)
[2023-11-17] MEDS: iron polysaccharide complex 150 mg Capsule PO (09:58)
[2023-11-17] MEDS: multivitamin therapeutic Tablet 1 TAB PO (09:58)
[2023-11-17] MEDS: citalopram 20 mg Tablet PO (09:58)
[2023-11-17] MEDS: hydroCHLOROthiazide 25 mg Tablet PO (09:58)
[2023-11-17] MEDS: amlodipine 10 mg Tablet PO (09:58)
[2023-11-17] MEDS: pantoprazole DR 40 mg Tablet PO (09:58)
[2023-11-17] MEDS: calcium carb-vit d 600mg/400unit 1 Tablet 1 EACH PO (09:58)
[2023-11-17] MEDS: chlorhexidine gluconate 0.12% Btl 473 mL 30 ML MUCOUS MEM (09:59)
[2023-11-17] MEDS: mupirocin oint 22 gm 1 APPLIC NASAL (09:59)
[2023-11-17] MEDS: ketorolac 30 mg/mL INJ 15 MG IVP (11:24)
--- NOTE | 2023-11-17 12:34 | PM.DCS ---
Discharge Providers Date of Admission: 11/16/23 09:47 Date of Discharge: November 17, 2023 Attending Provider at Admission: Kyle Valencia DO Attending Provider at Discharge: Kyle Valencia DO Consults: Dr. Crowell?hospitalist Primary Care Provider: Yuki Paris MD Diagnoses at Discharge Discharge Diagnosis (1) Degenerative joint disease of right hip: Status: Resolved Qualifiers: Osteoarthritis type: primary Qualified Code(s): M16.11 - Unilateral primary osteoarthritis, right hip (2) Hypertension: Status: Acute Qualifiers: Hypertension type: primary hypertension Qualified Code(s): I10 - Essential (primary) hypertension (3) COPD (chronic obstructive pulmonary disease): Status: Acute Qualifiers: COPD type: COPD with acute exacerbation Qualified Code(s): J44.1 - Chronic obstructive pulmonary disease with (acute) exacerbation (4) Tobacco dependency: Status: Acute Reason for Visit Reason for Visit: M16.11 Brief History: Status post right total hip arthroplasty Hospital Course Hospital Course Patient was brought to the hospital through the preoperative holding area with plan for right total hip arthroplasty for [right] hip dengerative joint disease. Once cleared by anesthesia for surgery subsequently was taken back to the operative suite underwent anesthesia per the anesthesia department and then underwent [right] total hip arthroplasty with Harvey robotic assistance posterior approach without any complications. Patient was then subsequently taken back to PACU in stable condition recovering well. Once recovered, patient was then subsequently admitted to the floor postoperatively. Internal medicine was consulted for medical management assistance. Patient weightbearing as tolerated to the right lower extremity, posterior hip precautions. PT/OT. Pain control. DVT prophylaxis. Postoperative antibiotics and TXA. dressing was change as needed. Internal medicine was on board and appreciate their medical management and assistance. Pt was determined on postoperative day [1] the patient was stable for discharge from orthopedic as well as internal medicine standpoint. Patient's labs were monitored daily. Patient will receive appropriate pain medication as well as DVT prophylaxis postoperatively. Appropriate discharge instructions as well. Patient was then discharged in stable condition. Patient will discharge home. Pt will follow-up with Orthopedics in the office in 2 weeks. Patient understands and agrees with current plan. All questions answered. Understands there is any issues or concerns and contact the office. Physical Exam Narrative: Examination of the right hip vanna dressing on the place with good seal no signs of saturation normal postoperative swelling to the right hip noted. Compartments soft compressible. Patient is able to wiggle the toes, plantarflex and dorsiflex ankle sensations intact to light touch distally distal pulses are palpable. Calf soft nontender Urinary Catheter Management: Thomas: Cath Placed During This Visit: yes, but has since been removed by the nurse Reason for Continuing Indwelling Catheter: Decision to DC Catheter Urinary Catheter Date of Insertion: 11/16/23 Urinary Catheter Time of Insertion: 07:30 Date Urinary Catheter Removed: 11/16/23 Time Urinary Catheter Discontinued: 20:00 Discharge Data Studies Completed and Pending Completed Studies During Hospitalization Category Date Time Status XR hip RT 2-3V wo/w pel* [id number] Routine Exams 11/16/23 09:30 Completed Pending at discharge Category Date Time Status Basic Metabolic Panel AM LABS Lab 11/18/23 04:00 Ordered Basic Metabolic Panel AM LABS Lab 11/19/23 04:00 Ordered Complete Blood Count w/Auto AM LABS Lab 11/18/23 04:00 Ordered Complete Blood Count w/Auto AM LABS Lab 11/19/23 04:00 Ordered Laboratory Results WBC 13.75 10^3/uL (3.29-11.43) H 11/17/23 05:00 RBC 3.78 10^6/uL (3.85-5.65) L 11/17/23 05:00 Hgb 11.90 g/dL (11.27-16.99) 11/17/23 05:00 Hct 35.8 % (37-53) L 11/17/23 05:00 MCV 94.7 fl (82-101) 11/17/23 05:00 MCH 31.5 pg (27-33) 11/17/23 05:00 MCHC 33.2 g/dL (30-55) 11/17/23 05:00 RDW 14.0 % (12.1-15.1) 11/17/23 05:00 Plt Count 264 10^3/cmm (157-399) 11/17/23 05:00 MPV 9.7 fL (7.4-10.4) 11/17/23 05:00 Neut % (Auto) 76.8 % 11/17/23 05:00 Lymph % (Auto) 9.5 % 11/17/23 05:00 [place] % (Auto) 13.2 % 11/17/23 05:00 Eos % (Auto) 0.0 % 11/17/23 05:00 Baso % (Auto) 0.1 % 11/17/23 05:00 Neut # (Auto) 10.56 10^3/uL (1.8-7.7) H 11/17/23 05:00 Lymph # (Auto) 1.3 10^3/uL (0.8-4.8) 11/17/23 05:00 [place] # (Auto) 1.8 10^3/uL (0.2-0.9) H 11/17/23 05:00 Eos # (Auto) 0.0 10^3/uL (0.0-0.8) 11/17/23 05:00 Baso # (Auto) 0.0 10^3/uL (0.0-0.1) 11/17/23 05:00 Nucleated RBC % (auto) 0 % 11/17/23 05:00 Nucleated RBCs # 0.0 /100WBC 11/17/23 05:00 Sodium 138 mmol/L (136-145) 11/17/23 05:00 Potassium 4.9 mmol/L (3.5-5.1) 11/17/23 05:00 Chloride 104 mmol/L (98-107) 11/17/23 05:00 Carbon Dioxide 27 mmol/L (22-29) 11/17/23 05:00 Anion Gap 11.9 (5-19) 11/17/23 05:00 BUN 15 mg/dL (8-23) 11/17/23 05:00 Creatinine 0.7 mg/dL (0.7-1.2) 11/17/23 05:00 GFR Calculation 113.2 mL/min (90-130) 11/17/23 05:00 Glucose 113 mg/dL (65-115) 11/17/23 05:00 Calculated Osmolality 288 mOsm/kg (285-295) 11/17/23 05:00 Calcium 9.0 mg/dL (8.5-10.5) 11/17/23 05:00 Blood Type O Positive 11/16/23 06:26 Rho(D) Type Rh positive 11/16/23 06:26 Antibody Screen Negative 11/16/23 06:26 Vitals Last Vital Signs Temp 97.7 F 11/17/23 12:14 Pulse 92 11/17/23 12:14 Resp 19 H 11/17/23 12:14 BP 152/74 11/17/23 12:14 Pulse Ox 90 11/17/23 12:14 O2 Del Method Room Air 11/17/23 12:14 O2 Flow Rate 3 11/16/23 13:52 Discharge Plan Discharge Patient Disposition: Home Health Service Condition: Stable Prescriptions: New Eliquis 2.5 mg tablet 2.5 mg PO BID 35 Days Qty: 70 0RF Calcium 600 + D(3) 600 mg-10 mcg (400 unit) tablet 1 tab PO DAILY 30 Days Qty: 30 0RF Continued (DME) nebulizer, mask, tubing and supplies See Rx Instructions .Route .MEDSUPPLY Qty: 1 0RF Rx Instructions: As directed albuterol sulfate 2.5 mg /3 mL (0.083 %) solution for nebulization 2.5 mg inhalation QID PRN (Reason: shortness of breath or wheezing) Qty: 90 3RF (DME) right economy knee brace See Rx Instructions .Route .MEDSUPPLY Qty: 1 0RF Rx Instructions: As directed hydrochlorothiazide 25 mg tablet 25 mg PO QAM Qty: 90 3RF albuterol sulfate [ProAir HFA] 90 mcg/actuation HFA aerosol inhaler 2 puff inhalation Q6H PRN (Reason: shortness of breath or wheezing) Qty: 8.5 5RF gabapentin 600 mg tablet 600 mg PO BID Qty: 180 1RF fluticasone propion-salmeterol [Advair Diskus] 500-50 mcg/dose blister with device 1 inh inhalation BID Qty: 60 5RF cyclobenzaprine 10 mg tablet See Rx Instructions .ROUTE .COMPLEX Qty: 270 1RF Dose Instruction: TAKE 1/2 TO 1 TABLET BY MOUTH THREE TIMES DAILY NEEDED FOR MUSCLE SPASMS Rx Instructions: TAKE 1/2 TO 1 TABLET BY MOUTH THREE TIMES DAILY NEEDED FOR MUSCLE SPASMS acetaminophen 650 mg tablet extended release 650 mg PO Q12H PRN (Reason: Pain) ascorbate calcium (vitamin C) 500 mg tablet 500 mg PO DAILY docusate sodium [Colace] 100 mg capsule 100 mg PO BID acetylcysteine [NAC] 600 mg capsule 600 mg PO DAILY coQ10 (ubiquinol) [Qunol Eleuterio CoQ10] 100 mg capsule 100 mg PO DAILY K2 Plus D3 1,000-100 unit-mcg tablet 1 tab PO DAILY melatonin 3 mg capsule 3 mg PO DAILY hydrocodone-acetaminophen 5-325 mg tablet 1 tab PO Q8H PRN (Reason: pain) 14 Days Qty: 42 0RF amlodipine 10 mg tablet 10 mg PO DAILY Qty: 90 1RF omeprazole 40 mg capsule,delayed release(DR/EC) 40 mg PO BID Qty: 180 3RF lisinopril 20 mg tablet 20 mg PO BID Rx Instructions: TAKE ONE TABLET BY MOUTH TWICE DAILY citalopram 20 mg tablet 20 mg PO DAILY Rx Instructions: TAKE ONE TABLET BY MOUTH EVERY DAY Discharge Orders: Discharge Order (Routine); Ordered 11/17/23 Ordered By: Kyle Valencia Referrals: [facility] [Outside] Kyle Valencia DO [Physician] - 12/03/23 9:15 am Discharge Diet: Advance as tolerated Discharge Activity: Limit activity as instructed, Use walker/crutches as instructed and As per PT/OT instructions Patient Instructions: Cephalexin (By mouth), Oxycodone, Rapid Release (By mouth), Ondansetron (By mouth), Apixaban (By mouth), Total Hip Replacement (GEN), Joint Replacement Stoplight, Opioid Safety Activity Restrictions/Additional Instructions: Orthopedic discharge instructions: All of your dressings are waterproof. Larger dressing--Vanna Dressing--Keep dressing on and dry. After 3 days you can shower, just disconnect battery pack when showering. Vanna dressing will stay on until follow up appt in 2 weeks. The battery pack for the dressing will at 5-7 days. Battery pack can be removed and discarded once batteries . Smaller Dressing-- leave Silverlon bandage dressings on in place for 7 days after that may rinse incisions with warm soapy water pat dry. Okay to shower over dressings if they do become wet these should be removed and new dressings applied Weight-bear as tolerated to operative lower extremity Posterior hip precautions as instructed by physical therapy(no crossing legs, avoid flexion greater than 90 degrees and avoid internal rotation of the hip) Ice as needed for pain and swelling Take pain medication as prescribed Take antinausea medication as needed Supplement with Citracal vitamin D for bone health and healing Take Colace as needed for constipation Take blood thinner as prescribed (Eliquis) Follow-up in the orthopedic office in 2 weeks Contact the office for any questions or concerns Discharge Attestations Time Spent in Discharge Care*: less than 30 min Quality Metrics Clinical Quality Measures [ No reported AMI, CVA or VTE this stay] Coding Level of Care Code Acute Code for Chg Fwd Diagnoses Primary osteoarthritis of right hip M16.11 Osteoarthritis type: primary Primary hypertension I10 Hypertension type: primary hypertension Chronic obstructive pulmonary disease with acute exacerbation J44.1 COPD type: COPD with acute exacerbation Tobacco dependency F17.200 Time Spent (min) 25
--- NOTE | 2023-11-17 14:38 | PC.NURSE ---
Discharge delay due to waiting on meds to beds.
== END 2023-11-17 15:32 | disposition home health service (06) ==
LOC: MEDSURG 09:48
PROVIDERS: Admitting Provider Student in an Organized Health Care Education/Training Program; PCP Family Medicine; Visit Provider Student in an Organized Health Care Education/Training Program
PROC: 8E0Y0CZ Robotic Assisted Procedure of Lower Extremity, Open Approach (ICD-10-PCS; CPT 27130; principal; 2023-11-16 07:00)
DX: M16.11 Unilateral primary osteoarthritis, right hip (principal); I10 Essential (primary) hypertension; J44.1 Chronic obstructive pulmonary disease with (acute) exacerbation; G47.33 Obstructive sleep apnea (adult) (pediatric); F17.210 Nicotine dependence, cigarettes, uncomplicated
CPT/HCPCS: 20985; 27130; 36415; 51702; 51798; 73502; 80048; 85025; 86850; 86900; 94640; 97110; 97116; 97161; 97165; 97530; C1713; C1776; G0378; J0131; J0330; J0690; J1100; J1170; J1885; J2250; J2371; J2405; J2704; J2710; J3010; J3370; J3490; J7030; J7120; J7626

== ENCOUNTER → 2023-12-03 08:58 | Outpatient (BNVA) | payer MEDICARE, OTHER, SELFPAY | PROVIDERS: PCP Family Medicine; Visit Provider Student in an Organized Health Care Education/Training Program | DX: Z96.641 Presence of right artificial hip joint (principal); M79.89 Other specified soft tissue disorders; Z48.89 Encounter for other specified surgical aftercare; Z79.899 Other long term (current) drug therapy | CPT/HCPCS: 73502 ==

== ENCOUNTER 2023-12-03 10:35 | Emergency (ER) | payer MEDICARE, OTHER, SELFPAY ==
--- NOTE | 2023-12-03 10:39 | USCV_ITS ---
Nando Mas Age: 63 Gender: M : 1960 Exam Date: 12/03/2023 10:44 Ordering Phys: Maik Bustos Technologist: JANES Exam Location: [facility] – [place] Indication: LT LE Swelling and pain post hip replacement HISTORY: Lower extremity edema. Lower extremity pain. PROCEDURES: Venous duplex imaging was performed in only the right lower extremity. The following venous structures were evaluated: common femoral vein, profunda vein, proximal portion of the greater saphenous vein, superficial femoral vein, and the popliteal vein. In addition, the posterior tibial and peroneal trunk were evaluated. Serial compression, augmentation maneuvers, and spectral Doppler flow evaluation were performed. FINDINGS: No evidence of DVT seen in any vessel visualized at this time. CONCLUSIONS No evidence of right lower extremity DVT. Mahamed Garcia MD (Electronically Signed) Final Date: 03 Dec 2023 13:40 S
== END 2023-12-03 11:21 | disposition left against medical advice (07) ==
PROVIDERS: Emergency Provider Nurse Practitioner Family; PCP Family Medicine
DX: Z53.21 Procedure and treatment not carried out due to patient leaving prior to being seen by health care provider (principal)
CPT/HCPCS: 93971; 99024; 99284

== ENCOUNTER → 2024-01-04 11:07 | Outpatient (BNVA) | payer MEDICARE, OTHER, SELFPAY | PROVIDERS: PCP Family Medicine; Visit Provider Nurse Practitioner Family | DX: R60.0 Localized edema (principal); I10 Essential (primary) hypertension | CPT/HCPCS: 80053; 83880; 85025 ==

== ENCOUNTER → 2024-01-13 09:42 | Outpatient (BNVA) | payer MEDICARE, OTHER, SELFPAY | PROVIDERS: PCP Nurse Practitioner Family; Visit Provider Nurse Practitioner Family | DX: I10 Essential (primary) hypertension (principal); R60.0 Localized edema; J44.1 Chronic obstructive pulmonary disease with (acute) exacerbation; F41.8 Other specified anxiety disorders; K21.9 Gastro-esophageal reflux disease without esophagitis; G25.81 Restless legs syndrome; Z78.9 Other specified health status | CPT/HCPCS: 80053; 80061; 82607; 83735; 83880; 84443; 85025 ==

== ENCOUNTER → 2024-01-14 11:33 | Outpatient (BNVA) | payer MEDICARE, OTHER, SELFPAY | PROVIDERS: PCP Nurse Practitioner Family; Visit Provider Nurse Practitioner Family | DX: R60.0 Localized edema (principal); Z79.899 Other long term (current) drug therapy | CPT/HCPCS: 85379 ==

== ENCOUNTER 2024-01-15 15:20 | Outpatient (CLI) | payer MEDICARE, OTHER, SELFPAY ==
--- NOTE | 2024-01-15 15:27 | USCV_ITS ---
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 In addition, the posterior tibial and peroneal trunk were evaluated. On the left side, the common femoral, superficial femoral, profunda femoral, popliteal, posterior tibial, greater saphenous veins, and the peroneal trunk were identified and interrogated in the standard fashion. These veins were found to be easily compressible with spontaneous blood flow. No evidence of insufficiency or thrombus noted. FINDINGS: no dvt CONCLUSIONS No evidence of left lower extremity DVT. Mahamed Garcia MD (Electronically Signed) Final Date: 18 January 2024 15:52 S
== END 2024-01-15 15:21 | disposition home or self-care (01) ==
LOC: RAD 15:21
PROVIDERS: PCP Nurse Practitioner Family; Visit Provider Nurse Practitioner Family
DX: M79.89 Other specified soft tissue disorders (principal); R79.89 Other specified abnormal findings of blood chemistry
CPT/HCPCS: 93971

== ENCOUNTER → 2024-01-26 08:23 | Outpatient (BNVA) | payer MEDICARE, OTHER, SELFPAY | PROVIDERS: PCP Nurse Practitioner Family; Visit Provider Student in an Organized Health Care Education/Training Program | DX: Z96.641 Presence of right artificial hip joint (principal) | CPT/HCPCS: 73502; 99024 ==

== ENCOUNTER → 2024-02-03 09:15 | Outpatient (BNVA) | payer MEDICARE, OTHER, SELFPAY | PROVIDERS: PCP Nurse Practitioner Family; Visit Provider Nurse Practitioner Family | DX: Z71.6 Tobacco abuse counseling (principal); R53.83 Other fatigue | CPT/HCPCS: 80053; 84403; 85025 ==

== ENCOUNTER → 2024-02-16 08:41 | Outpatient (CLI) | payer MEDICARE, OTHER, SELFPAY ==
--- NOTE | 2024-02-16 09:00 | CT_ITS ---
WS: [id number] LDCT LUNG CANCER SCREENING TECHNIQUE: Noncontrast CT of the chest with coronal and sagittal reformatted images. CLINICAL INFORMATION: F17.210 - Nicotine dependence, cigarettes, uncomplicated COMPARISON: None. DLP: 93.52 mGy.cm DIvol: Mean CTDIvol: 2.10 (mGy) All CT scans at [facility] use at least one of these dose optimization techniques: automat ed exposure control; mA and/or kV adjustment per patient size (includes targeted exams where dose is matched to clinical indication); or iterative reconstruction. FINDINGS: Calcified granulomas RIGHT upper lobe. No suspicious pulmonary parenchymal abnormalities. Aortic calcification. Normal caliber thoracic aorta. Normal caliber descending thoracic aorta. Calcif ied RIGHT hilar and paratracheal lymph nodes. No mediastinal or hilar lymphadenopathy. No axillary ly mphadenopathy. Adrenal glands are normal. Normal GE junction. Mild thoracic curve. Mild thoracic kyphosis and hypert rophic changes thoracic spine. CT/CT lung screening [id number] IMPRESSION: LUNG-RADS: 2-Benign Appearance or Behavior FOLLOW UP: 12 Month: Continue annual screening with LDCT
== END | disposition home or self-care (01) ==
LOC: RAD 08:40
PROVIDERS: PCP Nurse Practitioner Family; Visit Provider Nurse Practitioner Family
DX: Z12.2 Encounter for screening for malignant neoplasm of respiratory organs (principal); F17.210 Nicotine dependence, cigarettes, uncomplicated; J84.10 Pulmonary fibrosis, unspecified; R59.0 Localized enlarged lymph nodes; I70.0 Atherosclerosis of aorta
CPT/HCPCS: 71271; 80053; 84403; 85025

== ENCOUNTER → 2024-05-03 14:16 | Outpatient (BNVA) | payer MEDICARE, OTHER, SELFPAY | PROVIDERS: PCP Nurse Practitioner Family; Visit Provider Student in an Organized Health Care Education/Training Program | DX: Z96.641 Presence of right artificial hip joint (principal) | CPT/HCPCS: 73502 ==

== ENCOUNTER → 2024-05-11 13:06 | Outpatient (BNVA) | payer MEDICARE, OTHER, SELFPAY | PROVIDERS: PCP Nurse Practitioner Family; Visit Provider Nurse Practitioner Family | DX: R05.9 Cough, unspecified (principal) | CPT/HCPCS: 87400; 87426 ==

== ENCOUNTER → 2024-07-13 10:40 | Outpatient (BNVA) | payer MEDICARE, OTHER, SELFPAY | PROVIDERS: PCP Nurse Practitioner Family; Visit Provider Nurse Practitioner Family | DX: I10 Essential (primary) hypertension; G25.81 Restless legs syndrome; Z79.899 Other long term (current) drug therapy; M19.011 Primary osteoarthritis, right shoulder | CPT/HCPCS: 73030; 80053; 80061; 82607; 84443; 85025 ==

== ENCOUNTER → 2024-08-01 12:02 | Outpatient (BNVA) | payer MEDICARE, OTHER, SELFPAY | PROVIDERS: PCP Nurse Practitioner Family; Visit Provider Nurse Practitioner Family | DX: E87.5 Hyperkalemia (principal) | CPT/HCPCS: 80048 ==

== ENCOUNTER → 2024-12-07 11:12 | Outpatient (BNVA) | payer MEDICARE, OTHER, SELFPAY | PROVIDERS: PCP Nurse Practitioner Family; Visit Provider Student in an Organized Health Care Education/Training Program | DX: Z96.641 Presence of right artificial hip joint (principal); Z47.1 Aftercare following joint replacement surgery | CPT/HCPCS: 73502; 99213 ==

== ENCOUNTER → 2024-12-14 13:01 | Outpatient (BNVA) | payer MEDICARE, OTHER, SELFPAY | PROVIDERS: PCP Nurse Practitioner Family; Visit Provider Nurse Practitioner Family | DX: J44.1 Chronic obstructive pulmonary disease with (acute) exacerbation (principal); I10 Essential (primary) hypertension | CPT/HCPCS: 80053; 80061; 84443; 85025 ==

== ENCOUNTER → 2025-01-11 13:38 | Outpatient (BNVA) | payer MEDICARE, OTHER, SELFPAY | PROVIDERS: PCP Nurse Practitioner Family; Visit Provider Nurse Practitioner Family | DX: M79.672 Pain in left foot (principal) | CPT/HCPCS: 73630 ==